=== PATIENT | female | born 1950 | race Caucasian/White ===

== ENCOUNTER 2025-03-09 18:16 | Observation (INO) ==
--- NOTE | 2025-03-09 19:29 | DR.DIZZY ---
HPI <Boaz Alvares - Last Filed: 03/09/25 20:16> Time seen Time Seen by Provider: 03/09/25 19:00 PCP Primary Care Physician: Rochelle Dietz NP Complaint Chief Complaint Doctor Comments: 74-year-old female from home to ED via POV states that she has been having projectile vomiting diarrhea abdominal pain decreased appetite For over a week Patient states this got worse today with nausea vomiting and abdominal pain and headache and dizziness. Chief Complaint:: Patient states that Saturday the she started getting sick with projective vomiting, diarrhea, decreased appetite and stomach ache. reports that she started feeling better on saturday and then started feeling bad again today. reports that today she has nausea,vomiting, stomach pains, constant stools, and headache and dizziness. "I think I have the dizziness bc my head is hurting so bad" COVID-19 Coronavirus risk:travel/contact w/high risk person: No Has patient experienced Coronavirus symptoms: No Source History Provided: Patient Mode of Arrival Mode of Arrival: Ambulatory Timing Onset of Chief Complaint: 03/01/25 <Carla Gallo - Last Filed: 03/09/25 21:47> Context Stroke Symptoms: Dizziness PMH <Boaz Alvares - Last Filed: 03/09/25 20:16> PMH Past Medical History: Yes Past Medical History: Arthritis, CHF, Coronary Artery Disease, Dyslipidemia, Hypertension, [place] and Renal Disease Past Surgical History: Yes Surgical History: Appendectomy, Cholecystectomy and Hysterectomy Family History History of Family Medical Conditions: Yes (adopted) Family Medical History: [place], Coronary Artery Disease and Hypertension Social History Type of Tobacco Use: None Alcohol Use: None Do you use any recreational Drugs:: No Lives With: Spouse Lives Where: Home Travel Risk Coronavirus risk:travel/contact w/high risk person: No Has patient experienced Coronavirus symptoms: No Infectious screening Have you traveled outside the country in the last 6 months?: No Isolation: Standard ROS <Boaz Alvares - Last Filed: 03/09/25 20:16> Review of Systems Constitutional: No Symptoms Reported Eyes: No Symptoms Reported ENTM: No Symptoms Reported Respiratoy: No Symptoms Reported Cardiovascular: No Symptoms Reported Gastrointestinal/Abdominal: See HPI, Abdominal Pain, Diarrhea, Nausea and Vomiting Genitourinary: No Symptoms Reported Neurological: See HPI and Headache Musculoskeletal: No Symptoms Reported Integumentary: No Symptoms Reported Hematologic/Lymphatic: No Symptoms Reported Endocrine: No Symptoms Reported Psychiatric: No Symptoms Reported All Other Systems: Reviewed and Negative PE <Boaz Alvares - Last Filed: 03/09/25 20:16> Vital Signs Vitals: Vital Signs Temperature 98.4 F Pulse Rate 61 Respiratory Rate 18 Blood Pressure 156/67 O2 Sat by Pulse Oximetry 96 <Carla Gallo - Last Filed: 03/09/25 21:47> Vital Signs Vitals: Vital Signs Temperature 98.4 F Pulse Rate 61 Respiratory Rate 18 Blood Pressure 156/67 O2 Sat by Pulse Oximetry 96 General Limitations: No Limitations General Appearance: Alert and In No Apparent Distress Head Head Exam: Normal Inspection Eyes Eye exam: Normal Appearance Neck Neck Exam: Normal Inspection and Full ROM Chest Chest Inspection: Normal Inspection Respiratory Respiratory Exam: Normal Lung Sounds Bilat Cardiovascular Cardiovascular Exam: Regular Rate and Normal Rhythm Abdominal Exam Abdominal Exam: Normal Inspection, Normal Bowel Sounds and Soft Extremeties Extremities Exam: Joint Swelling (2+ pedal edema, no redness) Back Back Exam: Normal Inspection and Full ROM Neurologic Neurological Exam: Alert and Oriented X3 Psychiatric Psychiatric Exam: Normal Affect and Normal Mood Skin Skin Exam: Warm, Dry, Intact and Normal Color COURSE <Boaz Alvares - Last Filed: 03/09/25 20:16> Treatment [facility] with acute renal failure <Carla Sabino - Last Filed: 03/09/25 21:47> Treatment Treatment: 2014 Checked out to [facility] [place] CT abdomen pending probable disposition admission with acute renal failure 2130 pt resting comfortably; no vomiting or diarrhea since presentation; still w/abd pain; reports that she had arf with her last admission in December but this had resolved by the time she went home; she was to get Watchman at that time but was in chf at the time; she has fup with Dr Chaves later in the month; last mi was in June and she has a total of 12 stents Consultation Call Returned: 21:30 (Dr Villafuerte accepts admission) ROR <Boaz Alvares - Last Filed: 03/09/25 20:16> Labs Reviewed 03/09/25 19:23 03/09/25 19:23 Laboratory: WBC 9.3 X10^3/uL (3.6-10.0) 03/09/25 19:23 RBC 4.17 X10^6/uL (3.5-5.4) 03/09/25 19:23 Hgb 12.9 g/dL (12.0-16.0) 03/09/25 19:23 Hct 38.6 % (36.0-47.0) 03/09/25 19:23 MCV 92.6 fL (80.0-100.0) 03/09/25 19: MCH 30.9 pg (27.0-34.0) 03/09/25 19: MCHC 33.4 g/dL (33.0-35.0) 03/09/25 19: RDW 13.1 % (11.6-16.5) 03/09/25 19: Plt Count 248 X10^3/uL (150.0-450.0) 03/09/25 19:23 MPV 8.3 fL (7.4-11.0) 03/09/25 19:23 Neut % (Auto) 54.7 % (42.0-75.0) 03/09/25 19: Lymph % (Auto) 29.1 % (21.0-51.0) 03/09/25 19:23 [place] % (Auto) 12.9 % (0.0-13.0) 03/09/25 19:23 Eos % (Auto) 2.3 % (0.9-2.9) 03/09/25 19:23 Baso % (Auto) 1.0 % (0.2-1.0) 03/09/25 19:23 Neut # (Auto) 5.1 x10^3/uL (2.2-4.8) H 03/09/25 19:23 Lymph # (Auto) 2.7 X10^3/uL (1.3-2.9) 03/09/25 19:23 [place] # (Auto) 1.2 x10^3/uL (0.3-0.8) H 03/09/25 19:23 Eos # (Auto) 0.2 x10^3/uL (0.0-0.2) 03/09/25 19:23 Baso # (Auto) 0.1 X10^3/uL (0.0-0.1) 03/09/25 19:23 Absolute Nucleated RBC 0.1 /100WBC 03/09/25 19:23 Sodium 142 mmol/L (136-145) 03/09/25 19:23 Corrected Sodium TNP 03/09/25 19:23 Potassium 3.3 mmol/L (3.5-5.1) L 03/09/25 19:23 Chloride 102 mmol/L (98-107) 03/09/25 19:23 Carbon Dioxide 30.0 mmol/L (21-32) 03/09/25 19:23 BUN 69 mg/dL (7-18) H 03/09/25 19:23 Creatinine 3.04 mg/dL (0.55-1.02) H 03/09/25 19:23 Est GFR (MDRD) Af Amer 19 (>60) L 03/09/25 19:23 Est GFR (MDRD) Non-Af 16 (>60) L 03/09/25 19:23 Glucose 109 mg/dL (65-99) H 03/09/25 19:23 Calcium 9.5 mg/dL (8.5-10.1) 03/09/25 19:23 Corrected Calcium TNP 03/09/25 19:23 Total Bilirubin 0.50 mg/dL (0.2-1.0) 03/09/25 19:23 AST 22 Units/L (15-37) 03/09/25 19:23 ALT 23 Units/L (12-78) 03/09/25 19:23 Alkaline Phosphatase 111 Units/L (46-116) 03/09/25 19:23 Total Protein 7.1 g/dL (6.4-8.2) 03/09/25 19:23 Albumin 3.5 g/dL (3.4-5.0) 03/09/25 19:23 Globulin 3.6 g/dL (2.5-4.5) 03/09/25 19:23 Albumin/Globulin Ratio 1.0 Ratio (1.1-2.1) L 03/09/25 19:23 Amylase 58 Units/L (25-115) 03/09/25 19:23 Lipase 44 Units/L (16-77) 03/09/25 19:23 Specimen Type Clean catch urine 03/09/25 19:12 Urine Color Straw (YELLOW) 03/09/25 19:12 Urine Appearance Clear (CLEAR) 03/09/25 19:12 Urine pH 6.0 (5.0 - 8.0) 03/09/25 19:12 Ur Specific [place] 1.020 (1.000-1.030) 03/09/25 19:12 Urine Protein Negative (NEGATIVE) 03/09/25 19:12 Urine Glucose (UA) Negative (NEGATIVE) 03/09/25 19:12 Urine Ketones Negative (NEGATIVE) 03/09/25 19:12 Urine Blood Negative (NEGATIVE) 03/09/25 19:12 Urine Nitrite Negative (NEGATIVE) 03/09/25 19:12 Urine Bilirubin Negative (NEGATIVE) 03/09/25 19:12 Urine Urobilinogen Normal (NORMAL) 03/09/25 19:12 Ur Leukocyte Esterase Negative (NEGATIVE) 03/09/25 19:12 SARS-CoV-2 (PCR) Negative (NEGATIVE) 03/09/25 19:09 Influenza Type A (PCR) Negative (NEGATIVE) 03/09/25 19:09 Influenza Type B (PCR) Negative (NEGATIVE) 03/09/25 19:09 RSV (PCR) Negative (NEGATIVE) 03/09/25 19:09 <Carla Gallo - Last Filed: 03/09/25 21:47> Labs Reviewed Laboratory Results Reviewed?: Yes Laboratory: WBC 9.3 X10^3/uL (3.6-10.0) 03/09/25 19:23 RBC 4.17 X10^6/uL (3.5-5.4) 03/09/25 19:23 Hgb 12.9 g/dL (12.0-16.0) 03/09/25 19:23 Hct 38.6 % (36.0-47.0) 03/09/25 19:23 MCV 92.6 fL (80.0-100.0) 03/09/25 19:23 MCH 30.9 pg (27.0-34.0) 03/09/25 19: MCHC 33.4 g/dL (33.0-35.0) 03/09/25 19:23 RDW 13.1 % (11.6-16.5) 03/09/25 19:23 Plt Count 248 X10^3/uL (150.0-450.0) 03/09/25 19:23 MPV 8.3 fL (7.4-11.0) 03/09/25 19:23 Neut % (Auto) 54.7 % (42.0-75.0) 03/09/25 19:23 Lymph % (Auto) 29.1 % (21.0-51.0) 03/09/25 19:23 [place] % (Auto) 12.9 % (0.0-13.0) 03/09/25 19:23 Eos % (Auto) 2.3 % (0.9-2.9) 03/09/25 19:23 Baso % (Auto) 1.0 % (0.2-1.0) 03/09/25 19:23 Neut # (Auto) 5.1 x10^3/uL (2.2-4.8) H 03/09/25 19:23 Lymph # (Auto) 2.7 X10^3/uL (1.3-2.9) 03/09/25 19:23 [place] # (Auto) 1.2 x10^3/uL (0.3-0.8) H 03/09/25 19:23 Eos # (Auto) 0.2 x10^3/uL (0.0-0.2) 03/09/25 19:23 Baso # (Auto) 0.1 X10^3/uL (0.0-0.1) 03/09/25 19:23 Absolute Nucleated RBC 0.1 /100WBC 03/09/25 19:23 Sodium 142 mmol/L (136-145) 03/09/25 19:23 Corrected Sodium TNP 03/09/25 19:23 Potassium 3.3 mmol/L (3.5-5.1) L 03/09/25 19:23 Chloride 102 mmol/L (98-107) 03/09/25 19:23 Carbon Dioxide 30.0 mmol/L (21-32) 03/09/25 19:23 BUN 69 mg/dL (7-18) H 03/09/25 19:23 Creatinine 3.04 mg/dL (0.55-1.02) H 03/09/25 19:23 Est GFR (MDRD) Af Amer 19 (>60) L 03/09/25 19:23 Est GFR (MDRD) Non-Af 16 (>60) L 03/09/25 19:23 Glucose 109 mg/dL (65-99) H 03/09/25 19:23 Calcium 9.5 mg/dL (8.5-10.1) 03/09/25 19:23 Corrected Calcium TNP 03/09/25 19:23 Total Bilirubin 0.50 mg/dL (0.2-1.0) 03/09/25 19:23 AST 22 Units/L (15-37) 03/09/25 19:23 ALT 23 Units/L (12-78) 03/09/25 19:23 Alkaline Phosphatase 111 Units/L (46-116) 03/09/25 19:23 Total Protein 7.1 g/dL (6.4-8.2) 03/09/25 19:23 Albumin 3.5 g/dL (3.4-5.0) 03/09/25 19:23 Globulin 3.6 g/dL (2.5-4.5) 03/09/25 19:23 Albumin/Globulin Ratio 1.0 Ratio (1.1-2.1) L 03/09/25 19:23 Amylase 58 Units/L (25-115) 03/09/25 19:23 Lipase 44 Units/L (16-77) 03/09/25 19:23 Specimen Type Clean catch urine 03/09/25 19:12 Urine Color Straw (YELLOW) 03/09/25 19:12 Urine Appearance Clear (CLEAR) 03/09/25 19:12 Urine pH 6.0 (5.0 - 8.0) 03/09/25 19:12 Ur Specific [place] 1.020 (1.000-1.030) 03/09/25 19:12 Urine Protein Negative (NEGATIVE) 03/09/25 19:12 Urine Glucose (UA) Negative (NEGATIVE) 03/09/25 19:12 Urine Ketones Negative (NEGATIVE) 03/09/25 19:12 Urine Blood Negative (NEGATIVE) 03/09/25 19:12 Urine Nitrite Negative (NEGATIVE) 03/09/25 19:12 Urine Bilirubin Negative (NEGATIVE) 03/09/25 19:12 Urine Urobilinogen Normal (NORMAL) 03/09/25 19:12 Ur Leukocyte Esterase Negative (NEGATIVE) 03/09/25 19:12 SARS-CoV-2 (PCR) Negative (NEGATIVE) 03/09/25 19:09 Influenza Type A (PCR) Negative (NEGATIVE) 03/09/25 19:09 Influenza Type B (PCR) Negative (NEGATIVE) 03/09/25 19:09 RSV (PCR) Negative (NEGATIVE) 03/09/25 19:09 Opioid <Boaz Alvares - Last Filed: 03/09/25 20:16> Opioid Risk Tool Age (Jesse box if 16-45): No History of Preadolescent Sexual Abuse: No Total: 0 Total Score Risk Category: Low Risk Copyright: Jesus MATTHEWS predicting aberrant behaviors <Carla Gallo - Last Filed: 03/09/25 21:47> Opioid Risk Tool Total: 0 Total Score Risk Category: Low Risk Discharge Plan Diagnosis Discharge Problem: Acute renal failure, Vomiting, Diarrhea, History of chronic CHF Discharge Plan Patient Disposition: ADMITTED INPATIENT Condition: Stable Prescriptions: No Action pantoprazole [Protonix] 40 MG tablet,delayed release (DR/EC) 40 mg PO DAILY ondansetron 8 mg tablet,disintegrating 8 mg TID PRN alprazolam 0.5 mg tablet 0.5 mg PO BID PRN potassium chloride 20 mEq tablet,ER particles/crystals 20 meq PO QDAY furosemide [Lasix] 40 mg Tablet 40 mg PO QAM magnesium 500 mg Tablet 500 mg PO DAILY clonidine HCl 0.1 mg Tablet 0.1 mg PO BID PRN acetaminophen [Tylenol] 325 mg Tablet 650 mg PO Q4H PRN doxycycline hyclate 100 mg Capsule 100 mg PO BID amiodarone 200 mg Tablet 200 mg PO QDAY clopidogrel [Plavix] 75 mg Tablet 75 mg PO QDAY aspirin [Aspir-81] 81 mg Tablet,Delayed Release (Dr/Ec) 81 mg PO QDAY colchicine 0.6 mg Tablet 0.6 mg PO QDAY Vitamin D (with calcium) 77-400 mg-unit Tablet 1 tab PO DAILY Repatha SureClick 140 mg/mL Pen Injector 140 mg SUBCUT Q2W turmeric root ext-sour quispe 100-1,000 mg Capsule 1 cap PO DAILY losartan 50 MG tablet 50 mg PO BID Rx Instructions: TAKE 1 TABLET BY MOUTH DAILY. Health Concerns: Post Hospitalization: new medications and changes needed to prevent readmission or further decline. Pt educated and given instructions on all concerns. Plan of Treatment: Continue with present treatment and follow up plan. Pt is to keep follow up appointment as instructed and take medications as ordered. Follow ups/Referrals Follow ups/Referrals: Rochelle Dietz [Primary Care Provider, Unknown] - 3 days Instructions Instructions: Nausea and Vomiting, Adult, [id number] Print Language: [id number]
[2025-03-09 19:31] LABS: MEAN PLATELET VOLUME 8.3 fL (7.4-11.0); RED CELL DISTRIBUTION WIDTH 13.1 % (11.6-16.5)
[2025-03-09 19:32] LABS: BLOOD/HEMOGLOBIN,URINE NEGATIVE (NEGATIVE); LEUKOCYTE ESTERASE ,URINE NEGATIVE (NEGATIVE); NITRITES,URINE NEGATIVE (NEGATIVE)
[2025-03-09 19:34] LABS: APPEARANCE,URINE CLEAR (CLEAR)
[2025-03-09 19:43] LABS: CREATININE 3.04 mg/dL (0.55-1.02); eGFR NON BLACK RACES 16 (>60)
[2025-03-09] MEDS: NS 500 ML IV 500 ML IV ONE (20:13)
--- NOTE | 2025-03-09 20:43 | CT ---
EXAM: ABDOMEN/PELVIS W/O CON HISTORY: Saturday the 6th started getting sick with projective vomiting, diarrhea, decreased appetite, stomach ache. reports that she started feeling better on saturday and then started feeling bad again today.; COMPARISON: September 11, 2024 TECHNIQUE: Non-contrasted axial CT images of the abdomen and pelvis were obtained and reformatted into coronal and sagittal planes for further evaluation. Radiation dose: 676.58 mGy-cm total DLP FINDINGS: Lung bases are clear. Stomach appears normal. Solid visceral organs of the upper abdomen are unremarkable. Status post cholecystectomy. No intra or extrahepatic biliary dilatation. Unremarkable appearance of the kidneys. No hydronephrosis, hydroureter or ureteral calculus. Unremarkable appearance of the urinary bladder. Colonic diverticulosis without diverticulitis. Otherwise, unremarkable appearance of the small and large bowel. Status post hysterectomy. Small supraumbilical midline fat containing hernia without inflammatory changes. No evidence of acute appendicitis. No pneumoperitoneum. No significant fluid collection. No adenopathy. No acute osseous abnormality. IMPRESSION: 1. No acute intra-abdominal abnormality detected. 2. Colonic diverticulosis without diverticulitis. THIS IS AN ELECTRONICALLY VERIFIED FINAL REPORT 03/09/2025 8:40 PM - Electronically signed by Gonzalo Saldaña MD
[2025-03-09] MEDS ORDERED: CONSULT PHARMACY - POTASSIUM & MAGNESIUM XX SCH (22:00)
[2025-03-09] MEDS: ULTRAM PO PRN (23:03)
[2025-03-09] MEDS: NS 1,000 ML IV 1,000 ML IV SCH (23:04)
[2025-03-09 23:23] VITALS: BMI 40.6
[2025-03-10] MEDS: ZOFRAN INJ 4 MG VIAL IVP PRN (00:14)
[2025-03-10] MEDS: K-DUR TAB 20 MEQ PO ONE (01:28)
[2025-03-10 08:31] LABS: MEAN PLATELET VOLUME 8.5 fL (7.4-11.0); RED CELL DISTRIBUTION WIDTH 12.9 % (11.6-16.5)
[2025-03-10 08:42] LABS: COR CA(FOR HYPOALB) 9.8 mg/dL (8.5-10.1); CREATININE 2.70 mg/dL (0.55-1.02); eGFR NON BLACK RACES 18 (>60)
[2025-03-10] MEDS ORDERED: PHARMACY CONSULT XX SCH (09:00)
--- NOTE | 2025-03-10 09:23 | DR.H&P ---
H&P History & Physical for Day of: H&P Date: 03/10/25 Chief Complaint Chief Complaint: Weakness History of Present Illness History of Present Illness: Patient with a long cardiac history. Has had 12 coronary stents with the most recent being in June 2024. She does follow with [facility] cardiology. Also has a history of atrial fibrillation with planned Watchman for earlier this year. Was in the hospital to get ready for surgery and found to be in a CHF exacerbation. She was diuresed and sent home to stabilize. She then was going to go back last month for the watchman but was advised she was not stable, yet. She is pending ablation of lower extremity vessels in [place], as well. Got the area GI bug last week with nausea, vomiting, and diarrhea. That has improved but still with a little bit of nausea. Weakness was worsening and presented to the ER last night. Found to have an RANJEET with creatinine up to 3 and GFR down to 16. Potassium was 3.3 but no other electrolyte derangements. She has been on gentle hydration overnight and she is tolerating oral fluids and foods. She does not feel more swollen than normal but constantly feels swollen. She does feel slightly better this morning but still washed out. Labs are pending due to being a difficult stick. PMH: CAD, CHF, HTN, HLD, CKD, GERD, atrial fibrillation. PSH: Multiple coronary stents. Social: No tobacco, alcohol, or illicit drug use. She is , local resident, and retired. ROS: 12 point ROS negative except as noted above. PE: Well-developed, well-nourished, fatigued female in no acute distress. She is obese. Heart irregularly, regular with strong speech and clear lungs. Belly is soft and nontender with bowel sounds present. Trace edema bilateral lower extremities. Mood and affect are appropriate. Head NCAT, EOMI, hearing intact to conversation. Past Medical History Past Medical History: Arthritis, CHF, Coronary Artery Disease, Dyslipidemia, Hypertension, [place] and Renal Disease Past Surgical History Surgical History: Angioplasty/Stents, Cholecystectomy and Hysterectomy Family History Family Medical History: [place], Coronary Artery Disease and Hypertension Social History Does patient currently use any type of tobacco product: No Type of Tobacco Use: None Alcohol Use: None Drug Use: None Medications Home Medications: Home Medications Medication Instructions Recorded Confirmed Type pantoprazole 40 mg tablet,delayed 40 mg PO DAILY 09/2603/09/25 History release (Protonix) acetaminophen 325 mg tablet 650 mg PO Q4H PRN 03/09/25 03/09/25 History (Tylenol) alprazolam 0.5 mg tablet 0.5 mg PO BID PRN 03/09/25 1 History amiodarone 200 mg tablet 200 mg PO QDAY 03/09/2502/24 History aspirin 81 mg tablet,delayed 81 mg PO QDAY 03/09/25 History release calcium phosphate,dibasic 77 1 tab PO DAILY 03/09/25 1 History mg-vitamin D3 400 unit tablet clonidine HCl 0.1 mg tablet 0.1 mg PO BID PRN 03/09/25 03/09/25 History clopidogrel 75 mg tablet (Plavix) 75 mg PO QDAY 03/09/25 History colchicine 0.6 mg tablet 0.6 mg PO QDAY 03/09/2502/24 History doxycycline hyclate 100 mg capsule 100 mg PO BID 03/0903/09/25 History evolocumab 140 mg/mL subcutaneous 140 mg subcut Q2W 03/09/25 History pen injector (Repatha SureClick) furosemide 40 mg tablet (Lasix) 40 mg PO QAM 03/09/25 03/09/25 History losartan 50 mg tablet 50 mg PO BID 03/09/25 History magnesium 500 mg tablet 500 mg PO DAILY 03/09/25 History ondansetron 8 mg disintegrating 8 mg TID PRN 03/09/25 03/09/25 History tablet potassium chloride 20 mEq 20 meq PO QDAY 03/09/2502/24 History tablet,extended release(part/cryst) turmeric root extract 100 mg-sour 1 cap PO DAILY 03/0903/09/25 History quispe 1,000 mg capsule Allergies Allergies Allergy/AdvReac Type Severity Reaction Status Date / Time acetaminophen (From Allergy Verified 03/09/25 18:43 Darvocet-N) codeine Allergy Verified 03/09/25 18:43 Penicillins Allergy Verified 03/09/25 18:43 propoxyphene (From Allergy Verified 03/09/25 18:43 Darvocet-N) Labs 03/10/25 08:17 03/10/25 08:17 Labs: Laboratory WBC 7.0 X10^3/uL (3.6-10.0) 03/10/25 08:17 RBC 3.82 X10^6/uL (3.5-5.4) 03/10/25 08:17 Hgb 11.7 g/dL (12.0-16.0) L 03/10/25 08:17 Hct 35.3 % (36.0-47.0) L 03/10/25 08:17 MCV 92.4 fL (80.0-100.0) 03/10/25 08:17 MCH 30.6 pg (27.0-34.0) 03/10/25 08:17 MCHC 33.1 g/dL (33.0-35.0) 03/10/25 08:17 RDW 12.9 % (11.6-16.5) 03/10/25 08:17 Plt Count 222 X10^3/uL (150.0-450.0) 03/10/25 08:17 MPV 8.5 fL (7.4-11.0) 03/10/25 08:17 Neut % (Auto) 48.2 % (42.0-75.0) 03/10/25 08:17 Lymph % (Auto) 33.5 % (21.0-51.0) 03/10/25 08:17 [place] % (Auto) 14.0 % (0.0-13.0) H 03/10/25 08:17 Eos % (Auto) 3.8 % (0.9-2.9) H 03/10/25 08:17 Baso % (Auto) 0.5 % (0.2-1.0) 03/10/25 08:17 Neut # (Auto) 3.4 x10^3/uL (2.2-4.8) 03/10/25 08:17 Lymph # (Auto) 2.3 X10^3/uL (1.3-2.9) 03/10/25 08:17 [place] # (Auto) 1.0 x10^3/uL (0.3-0.8) H 03/10/25 08:17 Eos # (Auto) 0.3 x10^3/uL (0.0-0.2) H 03/10/25 08:17 Baso # (Auto) 0.0 X10^3/uL (0.0-0.1) 03/10/25 08:17 Absolute Nucleated RBC 0.0 /100WBC 03/10/25 08:17 Sodium 143 mmol/L (136-145) 03/10/25 08:17 Corrected Sodium TNP 03/10/25 08:17 Potassium 3.6 mmol/L (3.5-5.1) 03/10/25 08:17 Chloride 105 mmol/L (98-107) 03/10/25 08:17 Carbon Dioxide 29.0 mmol/L (21-32) 03/10/25 08:17 BUN 61 mg/dL (7-18) H 03/10/25 08:17 Creatinine 2.70 mg/dL (0.55-1.02) H 03/10/25 08:17 Est GFR (MDRD) Af Amer 22 (>60) L 03/10/25 08:17 Est GFR (MDRD) Non-Af 18 (>60) L 03/10/25 08:17 Glucose 91 mg/dL (65-99) 03/10/25 08:17 Calcium 9.0 mg/dL (8.5-10.1) 03/10/25 08:17 Corrected Calcium 9.8 mg/dL (8.5-10.1) 03/10/25 08:17 Total Bilirubin 0.40 mg/dL (0.2-1.0) 03/10/25 08:17 AST 19 Units/L (15-37) 03/10/25 08:17 ALT 20 Units/L (12-78) 03/10/25 08:17 Alkaline Phosphatase 99 Units/L (46-116) 03/10/25 08:17 Total Protein 6.2 g/dL (6.4-8.2) L 03/10/25 08:17 Albumin 3.0 g/dL (3.4-5.0) L 03/10/25 08:17 Globulin 3.2 g/dL (2.5-4.5) 03/10/25 08:17 Albumin/Globulin Ratio 0.9 Ratio (1.1-2.1) L 03/10/25 08:17 Amylase 58 Units/L (25-115) 03/09/25 19:23 Lipase 44 Units/L (16-77) 03/09/25 19:23 Specimen Type Clean catch urine 03/09/25 19:12 Urine Color Straw (YELLOW) 03/09/25 19:12 Urine Appearance Clear (CLEAR) 03/09/25 19:12 Urine pH 6.0 (5.0 - 8.0) 03/09/25 19:12 Ur Specific [place] 1.020 (1.000-1.030) 03/09/25 19:12 Urine Protein Negative (NEGATIVE) 03/09/25 19:12 Urine Glucose (UA) Negative (NEGATIVE) 03/09/25 19:12 Urine Ketones Negative (NEGATIVE) 03/09/25 19:12 Urine Blood Negative (NEGATIVE) 03/09/25 19:12 Urine Nitrite Negative (NEGATIVE) 03/09/25 19:12 Urine Bilirubin Negative (NEGATIVE) 03/09/25 19:12 Urine Urobilinogen Normal (NORMAL) 03/09/25 19:12 Ur Leukocyte Esterase Negative (NEGATIVE) 03/09/25 19:12 SARS-CoV-2 (PCR) Negative (NEGATIVE) 03/09/25 19:09 Influenza Type A (PCR) Negative (NEGATIVE) 03/09/25 19:09 Influenza Type B (PCR) Negative (NEGATIVE) 03/09/25 19:09 RSV (PCR) Negative (NEGATIVE) 03/09/25 19:09 Physical Exam Vital Signs: Vital Signs Temperature 97.5 F Temperature 97.9 F Pulse Rate [Right] 52 Pulse Rate [Right] 53 Respiratory Rate 18 Respiratory Rate 18 Blood Pressure [Left Arm] 121/57 Blood Pressure [Left Arm] 127/60 O2 Sat by Pulse Oximetry 97 O2 Sat by Pulse Oximetry 97 Assessment/Plan (1) Acute renal failure: Qualifiers: Acute renal failure type: unspecified Qualified Code(s): N17.9 - Acute kidney failure, unspecified Narrative Support Text: With mild hypokalemia. Continue gentle hydration. Encouraged p.o. intake. Repeat labs were eventually obtained and did show improvement in serum creatinine this morning. Will tentatively plan on discharge home tomorrow if she can tolerate oral intake with improved labs tomorrow. Patient and agreeable to plan. Monitor for signs and symptoms of worsening CHF/CAD. Status: Acute (2) Essential (primary) hypertension: Status: Chronic (3) Mixed hyperlipidemia: Status: Acute (4) CAD (coronary artery disease): Qualifiers: Coronary Disease-Associated Artery/Lesion type: [place] artery [place] vs. transplanted heart: [place] heart Associated angina: without angina Q ualified Code(s): I25.10 - Atherosclerotic heart disease of [place] coronary artery without angina pectoris Status: Chronic (5) GERD (gastroesophageal reflux disease): Qualifiers: Esophagitis presence: without esophagitis Qualified Code(s): K21.9 - Gastro-esophageal reflux disease without esophagitis Status: Chronic (6) Venous insufficiency of both lower extremities: Status: Chronic (7) Chronic systolic heart failure: Status: Acute
[2025-03-10] MEDS: HEPARIN SODIUM INJ 5000 UNITS SC SCH (12:26)
[2025-03-11 05:26] LABS: MEAN PLATELET VOLUME 8.6 fL (7.4-11.0); RED CELL DISTRIBUTION WIDTH 13.0 % (11.6-16.5)
[2025-03-11 05:35] LABS: COR CA(FOR HYPOALB) 9.7 mg/dL (8.5-10.1); CREATININE 2.34 mg/dL (0.55-1.02); eGFR NON BLACK RACES 21 (>60)
[2025-03-11] MEDS: PLAVIX PO SCH (09:07)
[2025-03-11] MEDS: CORDARONE TAB 200 MG PO SCH (09:07)
[2025-03-11 12:54] VITALS: BP 134/68; PULSE 54; RESP 19; TEMP 97.5; O2SAT 97
--- NOTE | 2025-03-11 15:15 | PCM.DCPLAN ---
DISCHARGE SUMMARY Admission Date Date of Admission: 03/09/25 Discharge Date Discharge Date: 03/11/25 Admission Diagnoses (1) Acute renal failure: Status: Resolved (2) Acute hypokalemia: Status: Resolved (3) Chronic kidney disease, stage 4 (severe): Status: Chronic (4) Anemia in CKD (chronic kidney disease): Status: Chronic (5) Essential (primary) hypertension: Status: Chronic (6) Mixed hyperlipidemia: Status: Chronic (7) CAD (coronary artery disease): Status: Chronic (8) GERD (gastroesophageal reflux disease): Status: Chronic (9) Venous insufficiency of both lower extremities: Status: Chronic (10) Chronic systolic heart failure: Status: Chronic Discharge Medications Discharge Medications: Home Medication List acetaminophen 325 mg tablet (Tylenol) 650 mg PO Q4H PRN 03/09/25 [History] alprazolam 0.5 mg tablet 0.5 mg PO BID PRN 03/09/25 [History] amiodarone 200 mg tablet 200 mg PO QDAY 03/09/25 [History] aspirin 81 mg tablet,delayed release 81 mg PO QDAY 03/09/25 [History] calcium phosphate,dibasic 77 mg-vitamin D3 400 unit tablet 1 tab PO DAILY 03/09/25 [History] clonidine HCl 0.1 mg tablet 0.1 mg PO BID PRN 03/09/25 [History] clopidogrel 75 mg tablet (Plavix) 75 mg PO QDAY 03/09/25 [History] colchicine 0.6 mg tablet 0.6 mg PO QDAY 03/09/25 [History] doxycycline hyclate 100 mg capsule 100 mg PO BID 03/09/25 [History] evolocumab 140 mg/mL subcutaneous pen injector (Repatha SureClick) 140 mg subcut Q2W 03/09/25 [History] furosemide 40 mg tablet (Lasix) 40 mg PO QAM 03/09/25 [History] losartan 50 mg tablet 50 mg PO BID 03/09/25 [History] magnesium 500 mg tablet 500 mg PO DAILY 03/09/25 [History] ondansetron 8 mg disintegrating tablet 8 mg TID PRN 03/09/25 [History] potassium chloride 20 mEq tablet,extended release(part/cryst) 20 meq PO QDAY 03/09/25 [History] turmeric root extract 100 mg-sour quispe 1,000 mg capsule 1 cap PO DAILY 03/09/25 [History] Prescriptions: Hospital Course Vital Signs: Vital Signs Temperature 97.7 F Temperature 97.7 F Pulse Rate [Right] 52 Pulse Rate [Right] 57 Respiratory Rate 16 Respiratory Rate 16 Blood Pressure [Left Arm] 145/70 Blood Pressure [Left Arm] 135/60 O2 Sat by Pulse Oximetry 94 O2 Sat by Pulse Oximetry 95 Latest Lab Results: Laboratory Last Values WBC 5.2 X10^3/uL (3.6-10.0) 03/11/25 05:10 RBC 3.50 X10^6/uL (3.5-5.4) 03/11/25 05:10 Hgb 11.0 g/dL (12.0-16.0) L 03/11/25 05:10 Hct 32.5 % (36.0-47.0) L 03/11/25 05:10 MCV 92.8 fL (80.0-100.0) 03/11/25 05:10 MCH 31.3 pg (27.0-34.0) 03/11/25 05:10 MCHC 33.7 g/dL (33.0-35.0) 03/11/25 05:10 RDW 13.0 % (11.6-16.5) 03/11/25 05:10 Plt Count 198 X10^3/uL (150.0-450.0) 03/11/25 05:10 MPV 8.6 fL (7.4-11.0) 03/11/25 05:10 Neut % (Auto) 45.5 % (42.0-75.0) 03/11/25 05:10 Lymph % (Auto) 35.4 % (21.0-51.0) 03/11/25 05:10 [place] % (Auto) 13.3 % (0.0-13.0) H 03/11/25 05:10 Eos % (Auto) 4.8 % (0.9-2.9) H 03/11/25 05:10 Baso % (Auto) 1.0 % (0.2-1.0) 03/11/25 05:10 Neut # (Auto) 2.4 x10^3/uL (2.2-4.8) 03/11/25 05:10 Lymph # (Auto) 1.9 X10^3/uL (1.3-2.9) 03/11/25 05:10 [place] # (Auto) 0.7 x10^3/uL (0.3-0.8) 03/11/25 05:10 Eos # (Auto) 0.3 x10^3/uL (0.0-0.2) H 03/11/25 05:10 Baso # (Auto) 0.1 X10^3/uL (0.0-0.1) 03/11/25 05:10 Absolute Nucleated RBC 0.1 /100WBC 03/11/25 05:10 Sodium 142 mmol/L (136-145) 03/11/25 05:10 Corrected Sodium TNP 03/11/25 05:10 Potassium 3.8 mmol/L (3.5-5.1) 03/11/25 05:10 Chloride 108 mmol/L (98-107) H 03/11/25 05:10 Carbon Dioxide 27.7 mmol/L (21-32) 03/11/25 05:10 BUN 55 mg/dL (7-18) H 03/11/25 05:10 Creatinine 2.34 mg/dL (0.55-1.02) H 03/11/25 05:10 Est GFR (MDRD) Af Amer 26 (>60) L 03/11/25 05:10 Est GFR (MDRD) Non-Af 21 (>60) L 03/11/25 05:10 Glucose 88 mg/dL (65-99) 03/11/25 05:10 Calcium 8.6 mg/dL (8.5-10.1) 03/11/25 05:10 Corrected Calcium 9.7 mg/dL (8.5-10.1) 03/11/25 05:10 Magnesium 2.0 mg/dL (2.0-2.9) 03/11/25 05:10 Total Bilirubin 0.30 mg/dL (0.2-1.0) 03/11/25 05:10 AST 20 Units/L (15-37) 03/11/25 05:10 ALT 20 Units/L (12-78) 03/11/25 05:10 Alkaline Phosphatase 92 Units/L (46-116) 03/11/25 05:10 Total Protein 5.7 g/dL (6.4-8.2) L 03/11/25 05:10 Albumin 2.6 g/dL (3.4-5.0) L 03/11/25 05:10 Globulin 3.1 g/dL (2.5-4.5) 03/11/25 05:10 Albumin/Globulin Ratio 0.8 Ratio (1.1-2.1) L 03/11/25 05:10 Amylase 58 Units/L (25-115) 03/09/25 19:23 Lipase 44 Units/L (16-77) 03/09/25 19:23 Specimen Type Clean catch urine 03/09/25 19:12 Urine Color Straw (YELLOW) 03/09/25 19:12 Urine Appearance Clear (CLEAR) 03/09/25 19:12 Urine pH 6.0 (5.0 - 8.0) 03/09/25 19:12 Ur Specific [place] 1.020 (1.000-1.030) 03/09/25 19:12 Urine Protein Negative (NEGATIVE) 03/09/25 19:12 Urine Glucose (UA) Negative (NEGATIVE) 03/09/25 19:12 Urine Ketones Negative (NEGATIVE) 03/09/25 19:12 Urine Blood Negative (NEGATIVE) 03/09/25 19:12 Urine Nitrite Negative (NEGATIVE) 03/09/25 19:12 Urine Bilirubin Negative (NEGATIVE) 03/09/25 19:12 Urine Urobilinogen Normal (NORMAL) 03/09/25 19:12 Ur Leukocyte Esterase Negative (NEGATIVE) 03/09/25 19:12 SARS-CoV-2 (PCR) Negative (NEGATIVE) 03/09/25 19:09 Influenza Type A (PCR) Negative (NEGATIVE) 03/09/25 19:09 Influenza Type B (PCR) Negative (NEGATIVE) 03/09/25 19:09 RSV (PCR) Negative (NEGATIVE) 03/09/25 19:09 Hospital Course: Patient admitted from home through the ER due to RANJEET on CKD 4 secondary to viral gastroenteritis along with diuretic usage due to CHF. Also found to be mildly hypokalemic. She responded well to gentle p.o. and IV hydration, potassium replacement, and holding her diuretics. After 2 days, she was stable enough for discharge home with her . She will need to continue p.o. hydration and close follow-up with PCP for repeat labs. Also needs to follow-up with them and cardiology about her diuretics. in room. Well-developed, well-nourished, elderly female in NAD. Sit on the edge of the bed eating breakfast. Head NCAT, EOMI, hearing intact conversation. Heart irregularly, irregular with no murmurs. Lungs clear with no wheezing or rhonchi. Bowel sounds present, belly soft and nontender. Able to move all extremities equally well with minimal edema of her ankles and feet.
== END 2025-03-11 13:55 | disposition home or self-care (01) ==
LOC: MED/SURG 18:16 → ER 18:16 → MED/SURG 22:36
PROVIDERS: ADMIT Family Medicine; ATTEND Family Medicine
DX: E87.6 Hypokalemia; N17.8 Other acute kidney failure; Z03.818 Encounter for observation for suspected exposure to other biological agents ruled out; R53.1 Weakness; K57.30 Diverticulosis of large intestine without perforation or abscess without bleeding; R51.9 Headache, unspecified; R42 Dizziness and giddiness; I25.2 Old myocardial infarction; A08.39 Other viral enteritis; Z95.5 Presence of coronary angioplasty implant and graft; I87.2 Venous insufficiency (chronic) (peripheral); E78.2 Mixed hyperlipidemia; K21.9 Gastro-esophageal reflux disease without esophagitis; M19.90 Unspecified osteoarthritis, unspecified site; I13.0 Hypertensive heart and chronic kidney disease with heart failure and stage 1 through stage 4 chronic kidney disease, or unspecified chronic kidney disease; I25.10 Atherosclerotic heart disease of native coronary artery without angina pectoris; N18.4 Chronic kidney disease, stage 4 (severe); R94.4 Abnormal results of kidney function studies; D63.1 Anemia in chronic kidney disease; I50.22 Chronic systolic (congestive) heart failure; I48.91 Unspecified atrial fibrillation